=== PATIENT | male | born 1980 | race African-American/Black ===

== ENCOUNTER → 2023-05-26 | Outpatient (CLI) | payer OTHER | LOC: M PLAIMG 15:14 | PROVIDERS: ATTEND Optometrist | DX: S60.551A Superficial foreign body of right hand, initial encounter (principal); X58.XXXA Exposure to other specified factors, initial encounter; Y92.9 Unspecified place or not applicable; Y93.9 Activity, unspecified; Y99.9 Unspecified external cause status ==

== ENCOUNTER → 2023-05-30 | Outpatient (CLI) | payer OTHER | LOC: M PLAIMG 07:29 → EDUNIT# 08:00 | PROVIDERS: ATTEND Optometrist | DX: H53.47 Heteronymous bilateral field defects (principal) ==